=== PATIENT | female | born 1945 | race Caucasian/White ===

== ENCOUNTER → 2016-08-10 | Outpatient (CLI) | payer MEDICARE ==
--- NOTE | ~2016-08-10 | MY29 ---
[facility] A Service of [facility] RADIOLOGY TEXT RESULTS PATIENT: KANDY TROY LOCATION: [facility] : 45 UNIT #: [id number] AGE: [address]: Generic Doctor NOT IN SYSTEM SEX: F ORDER DR: [id number] [facility] [address] [place], [place] [address] [id number] O MR#: [id number] Acc #: [id number] NAME: KANDY TROY : 1945 SEX: F STUDY DATE/TIME: 08/10/2016 10:31 UNIT: [facility] ROOM: STUDY DESCRIPTION: MY ZACH SCREENING W/ CAD BILAT Attending Physician: Generic Doctor Not In System Referring Physician: Generic Doctor Not In System Ordering Physician: Generic Doctor Not In System Primary Care Physician: Darwin Joseph M.D. MEDICAL IMAGING REPORT This report is preliminary unless electronic signature is present EXAM Digital screening mammogram 08/10/2016, [facility]. HISTORY 71-year-old woman; no risk elevation. Patient is on hormone replacement. Annual screening. COMPARISON 02/08/2011, 05/20/2013, 05/26/2015. FINDINGS Digital imaging of each breast was completed utilizing a two-view examination of each breast in craniocaudal and mediolateral-oblique projections. Review and interpretation of digital mammograms include a second review in conjunction with FDA-approved CAD device. There is a normal parenchymal presentation bilaterally consistent with the patient's age. There are no breast masses imaged and no parenchymal asymmetry is visualized. There are no suspicious microcalcifications and I see no focal architectural disturbance. NOTE: Image-guided biopsy marker stable upper outer quadrant left breast. IMPRESSION Negative screening digital mammogram. One-year followup recommended. Patients over the age of 40 are entered into a reminder system with target due date for the next mammogram. A result letter will also be sent to the patient. BIRADS: 1 Negative Dictated by... [facility] A Service [facility] RADIOLOGY TEXT RESULTS PATIENT: KANDY TROY LOCATION: [facility] : 45 UNIT #: [id number] AGE: [address]: Generic Doctor NOT IN SYSTEM SEX: F ORDER DR: Clark Garcia M.D. THIS IS AN ELECTRONICALLY VERIFIED REPORT Clark Garcia M.D. at 08/10/2016 2:43 PM Francois TD: 08/10/2016 13:26 JOB #: [id number] MEDICAL IMAGING REPORT Page 1 of 1 COPY
--- NOTE | ~2016-08-10 | BD1 ---
[facility] A Service of [facility] RADIOLOGY TEXT RESULTS PATIENT: KANDY TROY LOCATION: [facility] : 45 UNIT #: [id number] AGE: [address]: MARISOL SANTIAGO SEX: F ORDER DR: [id number] [facility] [address] [place], [place] [address] [id number] O MR#: [id number] Acc #: [id number] NAME: KANDY TROY : 1945 SEX: F STUDY DATE/TIME: 08/10/2016 10:41 UNIT: [facility] ROOM: STUDY DESCRIPTION: BD Dexa Bone Dens 1+ Site Attending Physician: Generic Doctor Not In System Referring Physician: Generic Doctor Not In System Ordering Physician: Staff Doctor Not On Primary Care Physician: Darwin Joseph M.D. MEDICAL IMAGING REPORT This report is preliminary unless electronic signature is present EXAM Bone density spine hip HISTORY Osteo screening. Family history osteoporosis in mother. Former smoker 50 years duration. Post-menopausal. FINDINGS Bone density scanning performed upper four lumbar vertebral segments and left proximal femur in 71-year-old 185 pound female. No comparison. L1-L4: Total bone mineral density 1.222 g/cm2 for T-score 1.6 standard deviation above the mean for reference population normal young individuals and Z-score 3.8 standard deviations above the mean for age matched population. PROXIMAL LEFT FEMUR: Total bone mineral density 0.933 g/cm2 for T-score 0.7 standard deviation below mean for reference population normal young individuals and Z-score 1.5 standard deviations above the mean for age matched population. In the left femoral neck the bone mineral density is 0.775 g/cm2 for T-score 0.7 standard deviations below mean for reference population normal young individuals and Z-score 1.2 standard deviations above the mean for age matched population. IMPRESSION 1. Normal bone mineral density upper four lumbar vertebral segments and proximal left femur. Please correlate with the patient's clinical status. Continued surveillance is recommended. [facility] A Service of [facility] RADIOLOGY TEXT RESULTS PATIENT: KANDY TROY LOCATION: [facility] : 45 UNIT #: [id number] AGE: [address]: MARISOL SANTIAGO SEX: F ORDER DR: Dictated by... Darwin Yarbrough M.D. THIS IS AN ELECTRONICALLY VERIFIED REPORT Darwin Yarbrough M.D. at 08/11/2016 5:59 PM THANIA/evelyne TD: 08/10/2016 15:39 JOB #: [id number] MEDICAL IMAGING REPORT Page 1 of 1 COPY
== END | disposition home or self-care (01) ==
LOC: CWCC 10:13
DX: Z13.820 Encounter for screening for osteoporosis (principal); Z12.31 Encounter for screening mammogram for malignant neoplasm of breast; Z98.890 Other specified postprocedural states
CPT/HCPCS: 77080; G0202